=== PATIENT | male | born 1985 | race Hispanic/Latino ===

== ENCOUNTER 2017-05-15 12:06 | Emergency (ER) | payer BC ==
[2017-05-15] MEDS ORDERED: Sodium Chloride 0.9% 1,000 ML IV STA (13:08)
--- NOTE | 2017-05-15 13:09 | ED PDOC ---
HPI: General Adult Time Seen by Provider: 05/15/17 12:36 Chief Complaint (Nursing): Flu-like Symptoms Chief Complaint (Provider): vomiting History Per: Patient Additional Complaint(s): 31-year-old male presents with flu like symptoms and vomiting that started this morning. Patient was seen at urgent care this morning and was started on Tamiflu. He took one dose of Tamiflu and started vomiting. Patient states he cannot keep down any liquids or solids. Patient states flu swab was obtained at urgent care but results will not be back for 24 hours. He states he was empirically treated for the flu with Tamiflu but did not react well to his first dose. PMD: none Past Medical History Reviewed: Historical Data, Nursing Documentation, Vital Signs Vital Signs: Last Vital Signs Temp 99 F 05/15/17 12:23 Pulse 87 05/15/17 12:23 Resp 18 05/15/17 12:23 BP 124/73 05/15/17 12:23 Pulse Ox 100 05/15/17 14:29 - Medical History PMH: No Chronic Diseases - Family History Family History: States: No Known Family Hx - Living Arrangements Living Arrangements: With Family - Social History Current smoker - smoking cessation education provided: No Alcohol: None Drugs: Denies - Home Medications Home Medications: Ambulatory Orders Medication Instructions Recorded Dicyclomine [Bentyl] 10 mg PO QID PRN #20 cap 05/15/17 Ondansetron [Zofran Odt] 4 mg PO ASDIR PRN #20 odt 05/15/17 - Allergies Allergies/Adverse Reactions: Allergies Allergy/AdvReac Type Severity Reaction Status Date / Time Penicillins Allergy RASH Verified 05/15/17 12:28 Review of Systems ROS Statement: Except As Marked, All Systems Reviewed And Found Negative Constitutional: Negative for: Fever, Chills Gastrointestinal: Positive for: Nausea, Vomiting, Abdominal Pain. Negative for : Diarrhea Physical Exam - Reviewed Nursing Documentation Reviewed: Yes Vital Signs Reviewed: Yes - Physical Exam Skin: Negative for: Rash Eye Exam: Positive for: Normal appearance Cardiovascular/Chest: Positive for: Regular Rate, Rhythm Respiratory: Positive for: Normal Breath Sounds. Negative for: Wheezing, Respiratory Distress Gastrointestinal/Abdominal: Positive for: Soft. Negative for: Tenderness, Distended, Guarding, Rebound Extremity: Positive for: Normal ROM Neurologic/Psych: Positive for: Alert, Oriented - Laboratory Results Result Diagrams: 05/15/17 13:07 05/15/17 13:07 Urine dip results: Negative for: Leukocyte Esterase, Blood, Nitrate, Ketones, Glucose, Bilirubin, Protein - ECG O2 Sat by Pulse Oximetry: 100 Pulse Ox Interpretation: Normal Medical Decision Making Medical Decision Makin31 year old with vomiting after taking tamiflu Plan: CBC CMP Lipase IVF IV zofran Flu swab Nausea resolved, patient now tolerating water and juice with no further emesis. Patient is aware of all diagnostic testing results, all questions answered. Advised to stop taking Tamiflu secondary to GI side effects. Patient given prescriptions for Zofran and Bentyl. Advised fluids, rest, NSAIDs for body aches as needed. Advise PMD follow-up in 2-3 days. Disposition - Clinical Impression Clinical Impression: Influenza-like symptoms, Gastroenteritis - Patient ED Disposition Is Patient to be Admitted: No Counseled Patient/Family Regarding: Studies Performed, Diagnosis, Need For Followup, Rx Given - Disposition Referrals: Radha Holcomb MD [Staff Provider] - Disposition: Routine/Home Disposition Time: 14:49 Condition: IMPROVED Additional Instructions: Stop taking Tamiflu. Drink plenty of clear liquids and follow bland diet. Take prescription meds as directed. Take [id number] Tylenol every 4 hours and ibuprofen every 6 hours for fever and body aches. Follow-up with primary doctor in 2-3 days. Return any time if acutely worse. Prescriptions: Dicyclomine [Bentyl] 10 mg PO QID PRN #20 cap PRN Reason: Gi Distress Ondansetron [Zofran Odt] 4 mg PO ASDIR PRN #20 odt PRN Reason: Nausea/Vomiting Instructions: Gastroenteritis (ED), Flu, Adult (DC) Forms: [employer] (Georgian) Results - Lab Results Lab Results: 05/15/17 05/15/17 05/15/17 13:07 13:07 13:07 WBC 16.5 H RBC 4.83 Hgb 13.7 Hct 40.6 MCV 84.0 MCH 28.3 MCHC 33.7 RDW 12.4 Plt Count 223 MPV 8.8 Neut % (Auto) 86.0 H Lymph % (Auto) 3.0 L [place] % (Auto) 10.7 H Eos % (Auto) 0.0 Baso % (Auto) 0.3 Neut # (Auto) 14.2 H Lymph # (Auto) 0.5 L [place] # (Auto) 1.8 H Eos # (Auto) 0.0 Baso # (Auto) 0.0 Neutrophils % (Manual) Pending Lymphocytes % (Manual) Pending Monocytes % (Manual) Pending Platelet Estimate Pending Sodium 141 Potassium 4.2 Chloride 99 Carbon Dioxide 29 Anion Gap 17 BUN 13 Creatinine 0.9 Est GFR ( Amer) > 60 Est GFR (Non-Af Amer) > 60 Random Glucose 115 H Calcium 9.8 Total Bilirubin 0.5 AST 20 ALT 29 Alkaline Phosphatase 53 Total Protein 7.7 Albumin 4.2 Globulin 3.4 Albumin/Globulin Ratio 1.2 Lipase 23 Influenza Typ A,B (EIA) Negative for flu a/b
[2017-05-15 13:29] LABS: BASO % 0.3 % (0.0-2.0); HEMOGLOBIN 13.7 g/dL (12.0-18.0); LYMPH # 0.5 K/uL (1.0-4.3); MEAN CORPUSCULAR HEMOGLOBIN 28.3 pg (27.0-31.0); MEAN CORPUSCULAR HGB CONC 33.7 g/dL (33.0-37.0); MEAN PLATELET VOLUME 8.8 fl (7.2-11.7); MONO # 1.8 K/uL (0.0-0.8); MONO % 10.7 % (0.0-10.0); NEUT # 14.2 K/uL (1.8-7.0); NRBC % 0.2 % (0.0-0.0); PLATELET COUNT 223 K/uL (130-400); RBC 4.83 Mil/uL (4.40-5.90); RED CELL DISTRIBUTION WIDTH 12.4 % (11.5-14.5); WHITE BLOOD COUNT 16.5 K/uL (4.8-10.8)
[2017-05-15 13:38] LABS: ALB/GLOB RATIO 1.2 (1.0-2.1); ALBUMIN 4.2 g/dL (3.5-5.0); ALT/SGPT 29 U/L (21-72); AST/SGOT 20 U/L (17-59); BLOOD UREA NITROGEN 13 mg/dl (9-20); CALCIUM 9.8 mg/dL (8.4-10.2); GFR AFRICAN-AMERICAN > 60; GFR NON-AFRICAN AMERICAN > 60; LIPASE 23 U/L (23-300)
[2017-05-15 15:04] LABS: BANDS 1 % (0-2); LYMPHOCYTE 4 % (20-50); MONOCYTE 9 % (0-10); NEUTROPHIL 86 % (42-75); PLATELET ESTIMATE NORMAL (NORMAL); TOTAL CELLS COUNTED 100
[2017-05-15 15:07] VITALS: BP 115/80; PULSE 75; RESP 16; TEMP 97.9; O2SAT 99
== END 2017-05-15 15:09 | disposition home or self-care (01) ==
LOC: H.ER 12:06
DX: J11.1 Influenza due to unidentified influenza virus with other respiratory manifestations (principal); K52.9 Noninfective gastroenteritis and colitis, unspecified
CPT/HCPCS: 80053; 83690; 85025; 87804; 96360; 99283; J2405; J7040

== ENCOUNTER 2017-05-18 09:55 | Emergency (ER) | payer BC ==
[2017-05-18 10:00] VITALS: O2SAT 100
[2017-05-18 10:14] VITALS: RESP 18
--- NOTE | 2017-05-18 10:48 | ED PDOC ---
HPI: Allergic Reaction Time Seen by Provider: 05/18/17 10:11 Chief Complaint (Nursing): Abnormal Skin Integrity Chief Complaint (Provider): Rash History Per: Patient History/Exam Limitations: no limitations Onset/Duration Of Symptoms: Days (monday) Current Symptoms Are (Timing): Still Present Additional Complaint(s): Pt. had flu like symptoms and vomiting that started while in [place] last week. He started azithromycin that he bought there. Patient was seen at urgent care Monday and was started on Tamiflu. He took one dose of Tamiflu and started vomiting. He states he was empirically treated for the flu with Tamiflu but did not react well to his first dose. He came to the ER that day with nausea, vomiting. Was given fluids and dc with neg flu. Here today since he developed rash all over. Itching all over. No pain on the body or rashes. Has pain on swallowing. Son also developed rash on the face, hands, mouth which is getting better. Pt. with mild cough. No fever, vomit, diarrhea, weakness, headaches, neck pain, vision changes, numbness, tingles currently. No chest pain or dyspnea. Past Medical History Reviewed: Nursing Documentation, Vital Signs Vital Signs: Last Vital Signs Temp 97 F L 05/18/17 10:07 Pulse 68 05/18/17 10:07 Resp 18 05/18/17 10:07 BP 125/83 05/18/17 10:07 Pulse Ox 100 05/18/17 10:07 - Medical History PMH: No Chronic Diseases - Surgical History Surgical History: No Surg Hx - Family History Family History: States: Unknown Family Hx - Living Arrangements Living Arrangements: With Family - Social History Current smoker - smoking cessation education provided: No Alcohol: Occasional Drugs: Denies - Home Medications Home Medications: Ambulatory Orders Medication Instructions Recorded Dicyclomine [Bentyl] 10 mg PO QID PRN #20 cap 05/15/17 Ondansetron [Zofran Odt] 4 mg PO ASDIR PRN #20 odt 05/15/17 DiphenhydrAMINE [Benadryl] 25 mg PO TID PRN 5 Days cap 05/18/17 Famotidine [Pepcid] 20 mg PO DAILY PRN #6 tab 05/18/17 predniSONE [predniSONE Tab] 20 mg PO BID 5 Days tab 05/18/17 - Allergies Allergies/Adverse Reactions: Allergies Allergy/AdvReac Type Severity Reaction Status Date / Time Penicillins Allergy RASH Verified 05/15/17 12:28 Review of Systems ROS Statement: Except As Marked, All Systems Reviewed And Found Negative Constitutional: Negative for: Weakness ENT: Positive for: Throat Pain Skin: Positive for: Rash Physical Exam - Reviewed Nursing Documentation Reviewed: Yes Vital Signs Reviewed: Yes - Physical Exam Appears: Positive for: Non-toxic, No Acute Distress Head Exam: Positive for: ATRAUMATIC, NORMAL INSPECTION, NORMOCEPHALIC Skin: Positive for: Rash (Hand, feet with few scattered erythematous spots nontender; Patches on chest, abd, back, legs, arms, face that are blanching erythema nontender; no fluctuance or induration.) Eye Exam: Positive for: EOMI, Normal appearance, PERRL ENT: Positive for: Pharyngeal Erythema (mild), Other (no tongue, lips swelling.) . Negative for: Nasal Congestion, Tonsillar Exudate, Tonsillar Swelling Neck: Positive for: Painless ROM, Supple Cardiovascular/Chest: Positive for: Regular Rate, Rhythm, Chest Non Tender. Negative for: Edema Respiratory: Positive for: CNT, Normal Breath Sounds Gastrointestinal/Abdominal: Positive for: Bowel Sounds, Soft. Negative for: Tenderness Back: Negative for: L CVA Tenderness, R CVA Tenderness Extremity: Positive for: Normal ROM. Negative for: Tenderness, Pedal Edema Neurologic/Psych: Positive for: Alert, pad cutter II-XII, Oriented. Negative for: Motor/Sensory Deficits, Aphasia, Facial Droop - ECG O2 Sat by Pulse Oximetry: 100 Pulse Ox Interpretation: Normal - Progress ED Course And Treament: 1051: Stable. AAOx3. Pain free. Will treat for possible hand, foot, mouth disease and allergic reaction. with pt. and will look for change or other symptoms and will return accordingly. Tolerated PO. Disposition - Clinical Impression Clinical Impression: Hand, foot and mouth disease, Allergic reaction - Patient ED Disposition Is Patient to be Admitted: No Counseled Patient/Family Regarding: Diagnosis, Need For Followup, Rx Given - Disposition Referrals: [facility] [Outside] - 05/22/17 Disposition: Routine/Home Disposition Time: 10:55 Condition: STABLE Additional Instructions: Return if not better in 3 days. Prescriptions: DiphenhydrAMINE [Benadryl] 25 mg PO TID PRN 5 Days cap PRN Reason: Itching / Pruritus Famotidine [Pepcid] 20 mg PO DAILY PRN #6 tab PRN Reason: Pain predniSONE [predniSONE Tab] 20 mg PO BID 5 Days tab Instructions: Hives (DC), Hand, Foot, and Mouth Disease Forms: [facility] (Latvian), [facility] ED School/Work Excuse
[2017-05-18 11:21] VITALS: BP 140/72; PULSE 66; TEMP 98
== END 2017-05-18 11:21 | disposition home or self-care (01) ==
LOC: H.ER 09:55
DX: B08.4 Enteroviral vesicular stomatitis with exanthem (principal); T78.40XA Allergy, unspecified, initial encounter; Z88.0 Allergy status to penicillin